=== PATIENT | male | born 1960 | race Two or more races ===

== ENCOUNTER 2019-11-10 15:11 | Inpatient (IN) | payer MEDICAID, OTHER ==
[~2019-11-10] VITALS: Ht 165.1 cm; Wt 70.1 kg
[~2019-11-10 15:11] MED LIST: NO HOME MEDS
--- NOTE | 2019-11-10 15:52 | NUR ---
PT TO CT.
--- NOTE | 2019-11-10 15:56 | NUR ---
THIS IS A 59 YO M W/ C/O N/V/DIZZINESS/SOB LT EYE PAIN AND NECK PAIN AFTER LANDING ON A SHOVEL AT WORK. PT BROUGHT BACK INTO ROOM IN WHEEL CHAIR, HAD DIFFICULTY AMBULATING TO [facility]. ONCE ON [facility], SHIRT REMOVED AND PT CONNECTED TO MONITORING. PT HYPOTENSIVE, OTHER VS WDL. PIV STARTED AND LABS DRAWN, 1L NS BOLUS STARTED. PT REPORTEDLY EXPERIENCING LOSS OF VISION IN LT EYE. PUPILS EQUAL. MD STUDENT REPORTS LT PUPIL NON REACTIVE TO LIGHT. NOTIFIED. PT MOVED TO TRAUMA 4. REPORT GIVEN TO BETZY JOLLEY. Addendum: 11/10/19 at 1719 by CBRUCIAGA LOSS OF VISION IN RT EYE*
[2019-11-10 15:57] LABS: BASOPHILS # (AUTO) 0.05 x10^3/uL (0-0.1); BASOPHILS % (AUTO) 1 % (0-1); EOSINOPHILS # (AUTO) 0.08 x10^3/uL (0-0.4); EOSINOPHILS % (AUTO) 1 % (1-7); LYMPHOCYTES # (AUTO) 2.24 x10^3/uL (1-3.4); LYMPHOCYTES % (AUTO) 23 % (22-44); MD NO; MEAN CORPUSCULAR HEMOGLOBIN 31.1 pg (27.5-34.5); MEAN CORPUSCULAR HGB CONC 33.8 g/dL (33.2-36.2); MEAN CORPUSCULAR VOLUME 92.2 fL (81-97); MEAN PLATELET VOLUME 9.4 fL (7.4-10.4); MONOCYTES # (AUTO) 0.76 x10^3/uL (0.2-0.8); MONOCYTES % (AUTO) 8 % (2-9); NEUTROPHILS # (AUTO) 6.58 x10^3/uL (1.8-6.8); NEUTROPHILS % (AUTO) 68 % (42-75); PLATELET COUNT 221 x10^3/uL (130-400); RED BLOOD COUNT 4.91 x10^6/uL (4.38-5.82); RED CELL DISTRIBUTION WIDTH 13.3 % (9.4-14.8)
[2019-11-10] MEDS ORDERED: SODIUM CHLORIDE 0.9% 1,000 ML IV SCH (16:06)
[2019-11-10 16:09] LABS: ALANINE AMINOTRANSFERASE 46 U/L (12-78); ALBUMIN 3.9 g/dL (3.4-5.0); ANION GAP 13 mmol/L (5-15); CALCIUM 9.3 mg/dL (8.5-10.1); CHLORIDE 110 mmol/L (98-107); CREATININE 1.37 mg/dL (0.7-1.3)
[2019-11-10 16:11] LABS: ALKALINE PHOSPHATASE 63 U/L (45-117); BILIRUBIN,TOTAL 0.6 mg/dL (0.2-1.0); TOTAL PROTEIN 7.3 g/dL (6.4-8.2)
[2019-11-10] MEDS ORDERED: OMNIPAQUE 350 MG/ML, 75ML BOTTLE ONE (16:29)
[2019-11-10] MEDS ORDERED: PHENYLEPHRINE 50 MG in SODIUM CHLORIDE 0.9% 245 ML IV PRN (16:30)
[2019-11-10] MEDS ORDERED: BISACODYL 10 MG SUPP PR PRN (16:30)
[2019-11-10] MEDS ORDERED: SODIUM CHLORIDE 0.9% 1,000ML IVBOLUS ONE (16:30)
[2019-11-10] MEDS ORDERED: POLYETHYLENE GLYCOL 17 GM PACKET PO PRN (16:30)
[2019-11-10] MEDS ORDERED: ONDANSETRON 2MG/ML, 2ML IVPush PRN (16:30)
[2019-11-10] MEDS ORDERED: ACETAMINOPHEN 325 MG TABLET PO PRN (16:30)
[2019-11-10] MEDS ORDERED: morphine SULFATE 10 MG/ML, 1ML IVPush PRN (16:30)
--- NOTE | 2019-11-10 16:32 | NUR ---
PER MD ALBA AND NEUROLOGIST, WAIT FOR COAG RESULTS TO GIVE TPA.
--- NOTE | 2019-11-10 16:42 | NUR ---
PTS BP 84/53, MD NOTIFIED AND ASKED WHAT RANGE FOR THE BP. PER MD ALLOW PERMISSIVE HYPOTENSION OF BP WITHOUT ADMINISTERING VASOPRESSORS UNTIL TPA ADMINISTERED, IVF TO RUN AT 100/H. PER MD LOW BP AND HR DUE TO CAROTID STIMULATION AND DO NOT NEED VASOPRESSORS AT THIS TIME.
[2019-11-10] MEDS ORDERED: ALTEPLASE 1 MG/ML, 100ML ONE ×2 (16:58→19:12)
[2019-11-10] MEDS ORDERED: ALTEPLASE IV ONE ×3 (17:00→18:00)
--- NOTE | 2019-11-10 17:05 | NUR ---
lab called about Coag results, oven laborer stated there is a problem with the insturment that they are trying to fix. will get Coag results souleymane
--- NOTE | 2019-11-10 17:08 | NUR ---
LATE ENTRY: REPORT FROM VAHID JOLLEY, PT MOVED TO T4. PT TO ED AFTER SHOVEL TO FRONTAL NECK, NOW C/O PAIN, LOSS OF VISION IN R EYE AND FIXED R PUPIL NOTED PER MED STUDENT, L ARM WEAKNESS AND NUMBNESS. C-COLLAR APPLIED AND PT LAID FLAT. 1L IVF INFUSING ON PRESSURE BAG FOR BP 79/34. PT TO CT WITH NEURO AND CODE NEURO TEAM. RETURN FROM CT AND THIS RN ESTABLISHED ADDITOIAL IV, COAGS REDRAWN BECAUSE PER LAB PREVIOUS SAMPLE HEMOLYZED. ED MD , NEUROLOGIST AND ICU MD DISCUSSED RISK BENEFIT OF HEPARIN V. TPA AND WITH PT, DECISION MADE TO GIVE TPA @1640. ORDER PLACED, AWAITING REDRAW OF COAGS. PER PHARMACY AND MD GIVE BOLUS WITH INFUSION PER STROKE PROTOCOL. PT C/O GALLAGHER. PT HAS SAME L ARM NUMBNESS, R PUPIL REACTIVE INTERMITTENTLY. ALTEPLASE PREPARED WITH NAIF JOLLEY, AWAITING LABS.
[2019-11-10] MEDS ORDERED: ONDANSETRON 2MG/ML, 2ML ONE ×2 (17:14→18:50)
[2019-11-10 17:24] LABS: PROTHROMBIN TIME 10.6 Seconds (9.6-11.5)
--- NOTE | 2019-11-10 17:27 | NUR ---
COAGS RESULTED. OK TO GIVE TPA PER MD
--- NOTE | 2019-11-10 17:27 | NUR ---
REPORT TO CAMILLA JOLLEY
--- NOTE | 2019-11-10 17:55 | NUR ---
TPA HELD PER
--- NOTE | 2019-11-10 18:07 | NUR ---
LATE ENTRY: PT HAVING NEURO CHANGES, STUDDERING SPEECH, L FACIAL DROOP. MD NOTIFIED. PT TAKEN FOR STAT HEAD CT
--- NOTE | 2019-11-10 18:26 | NUR ---
SALOME STARTED, BP 70/46
[2019-11-10] MEDS ORDERED: ATROPINE SYRINGE 0.1 MG/ML, 10ML ONE (18:43)
--- NOTE | 2019-11-10 18:45 | NUR ---
TASK RN: 16F OLIVA CATH INSERTED. 400ML OUTPUT.
[2019-11-10] MEDS ORDERED: NOREPINEPHRINE 8 MG in SODIUM CHLORIDE 0.9% 242 ML IV PRN (19:00)
[2019-11-10 19:12] VITALS: BP 125/64
--- NOTE | 2019-11-10 19:13 | NUR ---
report to [facility] RN, pt transferred to [facility]
--- NOTE | 2019-11-10 19:19 | NUR ---
REPORT TO [facility] RN
[2019-11-11] MEDS ORDERED: SENNA/DOCUSATE TABLET PO SCH (09:00)
== END 2019-11-10 19:32 | disposition short-term general hospital (02) | DRG 64 ==
LOC: ED 16:00 → EDIP 16:06 → UNDODISIN 23:10
PROVIDERS: ADMIT Internal Medicine; ATTEND Internal Medicine
DX: I63.9 Cerebral infarction, unspecified (principal); N17.0 Acute kidney failure with tubular necrosis; I77.71 Dissection of carotid artery; E87.2 Acidosis; H47.011 Ischemic optic neuropathy, right eye; H54.61 Unqualified visual loss, right eye, normal vision left eye; I65.21 Occlusion and stenosis of right carotid artery; R73.9 Hyperglycemia, unspecified
CPT/HCPCS: 36415; 37195; 70450; 70496; 70498; 80047; 80053; 82962; 84443; 85025; 85610; 85730; 86850; 86900; 93005; 96374; 96375; 99292; J2405; J2997; Q9967; J2370; J7030; J7050